=== PATIENT | female | born 1985 | race American Indian/Alaskan Native ===

== ENCOUNTER 2021-04-29 00:07 | Emergency (ER) | payer MEDICAID ==
[2021-04-29] MEDS ORDERED: METOCLOPRAMIDE 10 MG/2 ML INJ IV ONE (00:27)
[2021-04-29] MEDS ORDERED: SODIUM CHLORIDE 0.9% 1000 ML 1,000 ML IV ONE (00:27)
[2021-04-29] MEDS ORDERED: diphenhydrAMINE 50 MG/ML VIAL IV ONE (00:27)
[2021-04-29] MEDS ORDERED: DICYCLOMINE 20 MG/2 ML INJ IM ONE (00:27)
[2021-04-29 01:10] LABS: Basophils % (Auto) 0.4 % (0.0-1.8); Eosinophils % (Auto) 0.1 % (0.0-4.3); Hematocrit 38.1 % (30.3-42.9); Hemoglobin 12.5 gm/dl (10.1-14.3); Lymphocytes # (Auto) 1.2 K/mm3 (1.2-5.4); Lymphocytes % (Auto) 10.3 % (13.4-35.0); Mean Corpuscular HGB Conc 33 % (30-34); Mean Corpuscular Volume 87 fl (79-97); Monocytes # (Auto) 0.6 K/mm3 (0.0-0.8); Monocytes % (Auto) 5.2 % (0.0-7.3); Platelet Count 381 K/mm3 (140-440)
[2021-04-29 01:24] LABS: Alanine Aminotransferase 17 units/L (7-56); Albumin 4.5 g/dL (3.9-5); BUN/Creatinine Ratio 12; Blood Urea Nitrogen 11 mg/dL (7-17); Calcium 9.3 mg/dL (8.4-10.2); Hemolysis Index 22
--- NOTE | 2021-04-29 02:22 | Emergency Department Report ---
ED General Adult HPI - General Chief complaint: Nausea/Vomiting/Diarrhea Stated complaint: VOMITING UP BLOOD Time Seen by Provider: 04/29/21 00:29 Source: patient Mode of arrival: Ambulatory Limitations: No Limitations - History of Present Illness Initial comments: Patient 35-year-old female who presents for nausea vomiting abdominal cramping for 4 days. Patient seen at [facility] advised she had CT scan with contrast and was advised that nothing was wrong. Patient continues with nausea vomiting and abdominal spasms rated as 7/10. Symptoms are relieved by nothing tried symptoms are exacerbated by nothing tried. pt states one episode of blood in emesis. - Related Data Previous Rx's Medication Instructions Recorded Last Taken Type Dicyclomine [Bentyl] 10 mg PO QID PRN #30 capsule 04/29/21 Unknown Rx Metoclopramide [Reglan] 10 mg PO Q6H PRN #30 tablet 04/29/21 Unknown Rx diphenhydrAMINE [Benadryl CAP] 25 mg PO Q6HR PRN #30 capsule 04/29/21 Unknown Rx traMADoL [Ultram] 50 mg PO Q6HR PRN #12 tablet 04/29/21 Unknown Rx Allergies Allergy/AdvReac Type Severity Reaction Status Date / Time shellfish derived Allergy Hives Verified 04/29/21 00:23 ED Review of Systems ROS: Stated complaint: VOMITING UP BLOOD Other details as noted in HPI Constitutional: denies: chills, fever Eyes: denies: eye pain, eye discharge, vision change ENT: denies: ear pain, throat pain Respiratory: denies: cough, shortness of breath, wheezing Cardiovascular: denies: chest pain, palpitations, dyspnea on exertion, paroxysmal nocturnal dyspnea Endocrine: no symptoms reported Gastrointestinal: abdominal pain, nausea, vomiting. denies: diarrhea, con stipation, melena Genitourinary: denies: urgency, dysuria, discharge Musculoskeletal: denies: back pain, joint swelling, arthralgia Skin: denies: rash, lesions Neurological: denies: headache, weakness, paresthesias, vertigo Psychiatric: denies: anxiety, depression Hematological/Lymphatic: denies: easy bleeding, easy bruising ED Past Medical Hx - Past Medical History Previous Medical History?: No - Surgical History Past Surgical History?: Yes Additional Surgical History: cystectomy, 2 c section - Social History Smoking Status: Never Smoker Substance Use Type: Marijuana - Medications Home Medications: Home Medications Medication Instructions Recorded Confirmed Last Taken Type Dicyclomine [Bentyl] 10 mg PO QID PRN #30 capsule 04/29/21 Unknown Rx Metoclopramide [Reglan] 10 mg PO Q6H PRN #30 tablet 04/29/21 Unknown Rx diphenhydrAMINE [Benadryl CAP] 25 mg PO Q6HR PRN #30 capsule 04/29/21 Unknown Rx traMADoL [Ultram] 50 mg PO Q6HR PRN #12 tablet 04/29/21 Unknown Rx ED Physical Exam - General Limitations: No Limitations General appearance: alert, in no apparent distress - Head Head exam: Present: atraumatic, normocephalic - Eye Eye exam: Present: normal appearance, PERRL, EOMI Pupils: Present: normal accommodation - ENT ENT exam: Present: normal orophraynx, mucous membranes moist - Neck Neck exam: Present: normal inspection, full ROM - Respiratory Respiratory exam: Present: normal lung sounds bilaterally. Absent: respiratory distress, wheezes, stridor, chest wall tenderness - Cardiovascular Cardiovascular Exam: Present: regular rate, normal rhythm, normal heart sounds. Absent: systolic murmur, diastolic murmur, rubs, gallop - GI/Abdominal GI/Abdominal exam: Present: soft, normal bowel sounds. Absent: distended, tenderness, guarding, rebound, rigid, bruit, hernia - Rectal Rectal exam: Present: deferred - Extremities Exam Extremities exam: Present: normal inspection, full ROM, normal capillary refill - Back Exam Back exam: Present: normal inspection, full ROM. Absent: CVA tenderness (R), CVA tenderness (L) - Neurological Exam Neurological exam: Present: alert, oriented X3, CN II-XII intact, normal gait - Psychiatric Psychiatric exam: Present: depressed - Skin Skin exam: Present: warm, dry, intact, normal color. Absent: rash ED Course Vital Signs 04/29/21 04/29/21 00:18 03:47 Temperature 98.2 F Pulse Rate 74 Respiratory 18 16 Rate Blood Pressure 145/93 [Left] O2 Sat by Pulse 97 Oximetry ED Medical Decision Making - Lab Data Result diagrams: 04/29/21 00:51 04/29/21 00:51 Labs 04/29/21 04/29/21 04/29/21 00:51 00:51 03:28 WBC 12.1 H RBC 4.40 Hgb 12.5 Hct 38.1 MCV 87 MCH 28 MCHC 33 RDW 15.0 Plt Count 381 Lymph % (Auto) 10.3 L [place] % (Auto) 5.2 Eos % (Auto) 0.1 Baso % (Auto) 0.4 Lymph # (Auto) 1.2 [place] # (Auto) 0.6 Eos # (Auto) 0.0 Baso # (Auto) 0.0 Seg Neutrophils % 84.0 H Seg Neutrophils # 10.1 H Sodium 141 Potassium 3.8 Chloride 104.0 Carbon Dioxide 21 L Anion Gap 20 BUN 11 Creatinine 0.9 Estimated GFR > 60 BUN/Creatinine Ratio 12 Glucose 116 H Calcium 9.3 Total Bilirubin 0.30 AST 19 ALT 17 Alkaline Phosphatase 69 Total Protein 7.1 Albumin 4.5 Albumin/Globulin Ratio 1.7 Lipase 159 H HCG, Quant < 2 Urine Color Urine Turbidity Urine pH Ur Specific [place] Urine Protein Urine Glucose (UA) Urine Ketones Urine Blood Urine Nitrite Ur Reducing Substances Urine Bilirubin Urine Ictotest Urine Urobilinogen Ur Leukocyte Esterase Urine WBC (Auto) Urine RBC (Auto) U Epithel Cells (Auto) Urine Mucus Urine HCG, Qual 04/29/21 Unknown WBC RBC Hgb Hct MCV MCH MCHC RDW Plt Count Lymph % (Auto) [place] % (Auto) Eos % (Auto) Baso % (Auto) Lymph # (Auto) [place] # (Auto) Eos # (Auto) Baso # (Auto) Seg Neutrophils % Seg Neutrophils # Sodium Potassium Chloride Carbon Dioxide Anion Gap BUN Creatinine Estimated GFR BUN/Creatinine Ratio Glucose Calcium Total Bilirubin AST ALT Alkaline Phosphatase Total Protein Albumin Albumin/Globulin Ratio Lipase HCG, Quant Urine Color Yellow Urine Turbidity Clear Urine pH 7.0 Ur Specific [place] 1.024 Urine Protein 30 mg/dl Urine Glucose (UA) Neg Urine Ketones 80 Urine Blood Neg Urine Nitrite Neg Ur Reducing Substances Not Reportable Urine Bilirubin Neg Urine Ictotest Not Reportable Urine Urobilinogen < 2.0 Ur Leukocyte Esterase Neg Urine WBC (Auto) 1.0 Urine RBC (Auto) 13.0 U Epithel Cells (Auto) 2.0 Urine Mucus 3+ Urine HCG, Qual Negative - Radiology Data Radiology results: report reviewed, image reviewed CT ABDOMEN AND PELVIS WITHOUT CONTRAST INDICATION / CLINICAL INFORMATION: Pt complains of N/V/D x 3 years. Just discharged from another. TECHNIQUE: Axial CT images were obtained through the abdomen and pelvis without IV contrast. All CT scans at this location are performed using CT dose reduction for ALARA by means of automated exposure control. COMPARISON: None available. FINDINGS: LOWER CHEST: No significant abnormality. LIVER: No significant abnormality. GALLBLADDER: High density material is seen within the gallbladder. BILE DUCTS: No significant abnormality. PANCREAS: No significant abnormality. SPLEEN: No significant abnormality. ADRENALS: No significant abnormality. RIGHT KIDNEY / URETER: No significant abnormality. LEFT KIDNEY / URETER: No significant abnormality. STOMACH / SMALL BOWEL: No significant abnormality. COLON: No significant abnormality. APPENDIX: No significant abnormality. PERITONEUM: No free fluid. No free air. No fluid collection. LYMPH NODES: No significant adenopathy. VASCULAR STRUCTURES: No significant abnormality. URINARY BLADDER: No significant abnormality. REPRODUCTIVE ORGANS: Probable right Bartholin's gland cyst. ADDITIONAL FINDINGS: None. SKELETAL SYSTEM: No significant abnormality. IMPRESSION: 1. High density material within the gallbladder without adjacent inflammation or significant dilatation. The most likely etiology is vicarious excretion of contrast from the previous exam or possibly milk of calcium. 2. Negative for obstruction or localized inflammation. Signer Name: Erich Salazar MD Signed: 04/29/2021 4:02 AM Workstation Name: [id number] Transcribed By: ES Dictated By: Erich Salazar MD Electronically Authenticated By: Erich Salazar MD Signed Date/Time: 04/29/21401 DD/ 4 TD/TT: - Medical Decision Making CT scan abdomen and pelvis negative for obstruction or abnormality. Labs noted as above. Symptoms are Currently resolved. Plan DC to home, with prescriptions. Follow-up with GI. Follow-up with primary care doctor. Return to emergency department should symptoms worsen. Patient has tolerated p.o. without nausea vomiting. Will be DC'd home in stable condition at this time. Critical care attestation.: If time is entered above; I have spent that time in minutes in the direct care of this critically ill patient, excluding procedure time. ED Disposition Clinical Impression: Nausea and vomiting Qualifiers: Vomiting type: unspecified Qualified Code(s): R11.2 - Nausea with vomiting, unspecified Abdominal pain Qualifiers: Abdominal location: unspecified location Qualified Code(s): R10.9 - Unspecified abdominal pain Disposition: HOME / SELF CARE / HOMELESS Is pt being admited?: No Does the pt Need Aspirin: No Condition: Stable Instructions: Nausea and Vomiting, Adult, [id number], Rehydration, Adult, Clear Liquid Diet, Adult Additional Instructions: Take medications as prescribed, rehydrate as directed. Follow-up with your doctor in 2 to 3 days. Return to emergency department should symptoms worsen. Prescriptions: diphenhydrAMINE [Benadryl CAP] 25 mg PO Q6HR PRN #30 capsule PRN Reason: Nausea And Vomiting Dicyclomine [Bentyl] 10 mg PO QID PRN #30 capsule PRN Reason: Abdominal spasm Metoclopramide [Reglan] 10 mg PO Q6H PRN #30 tablet PRN Reason: Nausea And Vomiting traMADoL [Ultram] 50 mg PO Q6HR PRN #12 tablet PRN Reason: Pain Referrals: [facility] [Provider Group] - 3-5 Days BRYSON TOLENTINO MD [Staff Physician] - 3-5 Days Forms: Work/School Release Form(ED) Time of Disposition: 04:26
[2021-04-29] MEDS ORDERED: ONDANSETRON 4 MG ODT TAB PO ONE (02:57)
[2021-04-29] MEDS ORDERED: MORPHINE 4 MG/1 ML INJ IV ONE (03:36)
[2021-04-29] MEDS ORDERED: ONDANSETRON 4 MG/2 ML INJ IV ONE (03:36)
[2021-04-29 03:45] LABS: Bilirubin,Urine NEG (Negative); Blood,Urine NEG (Negative); Color,Urine Yellow (Yellow); HCG Qualitative,Urine Negative (Negative); Mucus,Urine 3+ /HPF; Urobilinogen,Urine < 2.0 mg/dL (<2.0)
--- NOTE | 2021-04-29 04:06 | Cat Scan Report ---
CT ABDOMEN AND PELVIS WITHOUT CONTRAST INDICATION / CLINICAL INFORMATION: Pt complains of N/V/D x 3 years. Just discharged from another. TECHNIQUE: Axial CT images were obtained through the abdomen and pelvis without IV contrast. All CT scans at this location are performed using CT dose reduction for ALARA by means of automated exposure control. COMPARISON: None available. FINDINGS: LOWER CHEST: No significant abnormality. LIVER: No significant abnormality. GALLBLADDER: High density material is seen within the gallbladder. BILE DUCTS: No significant abnormality. PANCREAS: No significant abnormality. SPLEEN: No significant abnormality. ADRENALS: No significant abnormality. RIGHT KIDNEY / URETER: No significant abnormality. LEFT KIDNEY / URETER: No significant abnormality. STOMACH / SMALL BOWEL: No significant abnormality. COLON: No significant abnormality. APPENDIX: No significant abnormality. PERITONEUM: No free fluid. No free air. No fluid collection. LYMPH NODES: No significant adenopathy. VASCULAR STRUCTURES: No significant abnormality. URINARY BLADDER: No significant abnormality. REPRODUCTIVE ORGANS: Probable right Bartholin's gland cyst. ADDITIONAL FINDINGS: None. SKELETAL SYSTEM: No significant abnormality. IMPRESSION: 1. High density material within the gallbladder without adjacent inflammation or significant dilatati on. The most likely etiology is vicarious excretion of contrast from the previous exam or possibly mi lk of calcium. 2. Negative for obstruction or localized inflammation. Signer Name: Erich Salazar MD Signed: 04/29/2021 4:02 AM Workstation Name: [id number]
[2021-04-29 05:38] VITALS: BP 156/92
== END 2021-04-29 05:38 | disposition home or self-care (01) ==
LOC: ED 00:07
DX: R11.2 Nausea with vomiting, unspecified (principal); R10.9 Unspecified abdominal pain; F12.90 Cannabis use, unspecified, uncomplicated
CPT/HCPCS: 36415; 74176; 80053; 81001; 81025; 83690; 84702; 85025; 96372; 96374; 96375; 99284; J0500; J1200; J2270; J2405; J2765; J7030; J3490; Q0162

== ENCOUNTER 2021-10-18 07:27 | Emergency (ER) | payer MEDICAID ==
[2021-10-18 07:38] VITALS: BP 133/70
== END 2021-10-18 21:30 | disposition left against medical advice (07) ==
LOC: ED 07:27
DX: R11.10 Vomiting, unspecified (principal); Z53.21 Procedure and treatment not carried out due to patient leaving prior to being seen by health care provider